=== PATIENT | female | born 1990 | race Two or more races ===

== ENCOUNTER 2021-05-17 09:31 | Emergency (ER) | payer BC ==
[~2021-05-17] VITALS: Ht 154.9 cm; Wt 56.0 kg
[2021-05-17 10:02] VITALS: BP 113/86
== END 2021-05-17 11:00 | disposition left against medical advice (07) ==
LOC: ER 10:52
DX: Z53.21 Procedure and treatment not carried out due to patient leaving prior to being seen by health care provider (principal)
CPT/HCPCS: 93005